=== PATIENT | male | born 1970 | race Caucasian/White ===

== ENCOUNTER → 2018-06-05 | Outpatient (CLI) | payer MEDICARE, MEDICAID ==
[~2018-06-05] MED LIST: ADVAIR HFA 230M12 GM INH; AZELAST NASAL137 MC1 NASAL; BACTRIM DS TAB1 EACH PO; COLACE100 MG PO; DOXYCYCLINE 10100 MG PO; FISH OIL 1,0001 EAC8 PO; FLEXERIL; GLUCOPHAGE XR500 MG PO; GLUCOPHAGE500 MG PO; GLYBURIDE 5 MG T5 M1 PO; HYDROCODON-ACE1 EAC7 PO; KEFLEX500 MG PO; KLOR-CON 1010 MEQ PO; LASIX 40 MG TAB40 M2 PO; LEVAQUIN 500 M500 M2 PO; LISINOPRIL-HCT1 EAC2 PO; LISINOPRIL5 MG PO; MEDROLDOSEPACK PO; MELATONIN5 M4 PO; MELOXICAM15 MG PO; MOBIC15 MG PO; NAPROSYN500 MG; NEURONTIN 300M300 M2 PO; NICOTINE TRANSD21 M1 TRANSDERM; NOHOMEMEDICATIONS; NORCO 5-325 TA1 EACH PO; NORVASC10 MG PO; OCEAN45 ML NASAL; PREDNISONE 10 M10 M1; PREDNISONE 20 M20 M1 PO; PREDNISONE10 MG PO; PROAIR HFA8.5 GM PO; SERTRALINE HCL50 MG PO; SINGULAIR 10 MG10 M1 PO; SPIRIVA18 MCG PO; TOPROL XL50 MG PO; TRAMADOL 50 MG50 MG PO; TYLENOL325 MG PO; ULTRAM 50MG TAB50 MG PO; VENTOLIN HFA 1818 GM INH; VENTOLIN HFA INH8 GM IH; ZOCOR20 MG PO; ZPAK PO; ZYRTEC10 MG PO
== END ==
LOC: M.ULTRA 06-04 15:00
DX: I83.91 Asymptomatic varicose veins of right lower extremity (principal); M19.90 Unspecified osteoarthritis, unspecified site; J45.909 Unspecified asthma, uncomplicated; E11.9 Type 2 diabetes mellitus without complications; E78.2 Mixed hyperlipidemia; I10 Essential (primary) hypertension; G47.33 Obstructive sleep apnea (adult) (pediatric); E66.9 Obesity, unspecified; Z88.8 Allergy status to other drugs, medicaments and biological substances; Z88.1 Allergy status to other antibiotic agents; Z68.41 Body mass index [BMI] 40.0-44.9, adult; Z79.84 Long term (current) use of oral hypoglycemic drugs; Z82.49 Family history of ischemic heart disease and other diseases of the circulatory system

== ENCOUNTER → 2020-01-01 | Outpatient (CLI) | payer MEDICARE, MEDICAID ==
--- NOTE | 2020-01-05 17:32 | 24HR ---
[place] [address] HOLTER MONITOR REPORT Name: JESSICA ZALDIVAR Room: [facility]#: [id number] Admission: 01/01/20 Attend Phys: Flaca Aguila Discharge: Date of : 68 Date of Service: 01/05/20 1125 Report #: [id number] THIS REPORT FOR: cc: Flaca Aguila Linda J. DO Liston, Michael J. 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 The maximum heart rate was 122 bpm corresponding with sinus tachycardia at 2:23 PM. The minimum heart rate was 53 bpm corresponding with sinus bradycardia at 3:40 AM. The patient exhibited tachycardia defined as heart rate greater than 100 bpm 80% of the monitor time. Patient exhibited bradycardia defined as heart rate less than 50 bpm less than 1% of the monitored time. There were rare unifocal premature ventricular contractions. There was no significant nonsustained or sustained ventricular ectopy. There were occasional premature atrial contractions. There were rare atrial couplets. There were no episodes of significant nonsustained or sustained supraventricular arrhythmia. There were no significant pauses and rhythm. There was no evidence of underlying atrial fibrillation or flutter. A diary was submitted in which the patient reported racing heart on 2 occasions. The symptoms do not appear to correlate with significant [place] [address] HOLTER MONITOR REPORT Name: JESSICA ZALDIVAR Room: [facility]#: [id number] Admission: 01/01/20 Attend Phys: Flaca Aguila Discharge: Date of : 68 Date of Service: 01/05/20 1125 Report #: [id number] Electronically Signed On 01-05-2020 17:31:57 CDT by Brandon Reese [email or web address] <ELECTRONICALLY SIGNED> By: Brandon Reese MD, [facility] 01/05/20 1731 1125 1125 Brandon Reese MD, FACC /EPI
== END ==
LOC: M.CRD 12:43
PROVIDERS: ATTEND Family Medicine
DX: R00.0 Tachycardia, unspecified (principal); R06.02 Shortness of breath; I10 Essential (primary) hypertension; E11.42 Type 2 diabetes mellitus with diabetic polyneuropathy

== ENCOUNTER 2020-02-06 12:54 | Emergency (ER) | payer MEDICARE, MEDICAID ==
[~2020-02-06] VITALS: Ht 157.5 cm; Wt 179.2 kg
[2020-02-06] MEDS ORDERED: LISINOPRIL5 MG PO (13:08)
[2020-02-06] MEDS ORDERED: MELOXICAM15 MG PO (13:08)
[2020-02-06] MEDS ORDERED: SIMVASTATIN80 MG PO (13:09)
[2020-02-06] MEDS ORDERED: NEURONTIN100 MG PO (13:10)
[2020-02-06] MEDS ORDERED: TRAMADOL 50 MG50 MG PO (13:10)
[2020-02-06] MEDS ORDERED: SYMBICORT80 MCG/4.1 INH (13:11)
[2020-02-06] MEDS ORDERED: MONTELUKAST SODI4 M1 PO (13:11)
[2020-02-06 14:08] LABS: ABSOLUTE BASOPHILS 0.1 thou/uL (0.0-0.2); ABSOLUTE EOSINOPHILS 0.1 thou/uL (0.0-0.7); ABSOLUTE LYMPHOCYTES 2.3 thou/uL (0.8-5.3); ABSOLUTE MONOCYTES 0.9 thou/uL (0.0-1.2); ABSOLUTE NEUTROPHILS 7.5 thou/uL (1.6-8.1); BASOPHILS 0.8 %; EOSINOPHILS 0.9 %; HEMOGLOBIN 16.8 gm/dL (14.0-18.0); LYMPHOCYTES 21.3 %; MCH 31.2 pg (26.0-34.0); MCHC 34.9 g/dL (28.0-37.0); MCV 89.3 fL (80.0-100.0); MONOCYTES 8.2 %; MPV 7.5 fl. (7.2-11.1); NUCLEATED RBCS 0 /100WBC; PLATELET COUNT* 311 thou/uL (150-400); POLYS 68.8 %; RBC 5.38 mil/uL (4.50-6.00); RDW-CV 14.5 % (10.5-14.5)
[2020-02-06 14:16] LABS: CALCIUM 8.6 mg/dL (8.5-10.1); CREATININE 1.2 mg/dL (0.6-1.3); POTASSIUM 4.4 mmol/L (3.5-5.1)
[2020-02-06 14:32] LABS: TOTAL BILIRUBIN 0.9 mg/dL (<0.1-1.0)
[2020-02-06 15:04] LABS: TOTAL PROTEIN 6.4 g/dL (6.4-8.2)
[2020-02-06] MEDS ORDERED: PROAIR HFA8.5 GM INH (16:42)
[2020-02-06 17:04] VITALS: BP 135/74
--- NOTE | 2020-02-08 11:57 | EKG ---
[place] [address] ELECTROCARDIOGRAM REPORT Name: JESSICA ZALDIVAR Noé Room: [facility]#: [id number] Admission: 02/06/20 Attend Phys: Discharge: 02/06/20 Date of : 68 Date of Service: 02/06/20 1303 Report #: [id number] THIS REPORT FOR: //name// [facility] ED Test Date: 2020-02-06 Test Time: 13:03:53 Pat Name: JESSICA ZALDIVAR Department: Room: Gender: Electrician Telephone: [facility] : 1970 Requested By: Jose L Magdaleno Order Number: [id number] MD: Chris Kaur Measurements Intervals [place] Rate: 91 P: 54 PA: 151 QRS: 74 QRSD: 94 T: 55 QT: 357 QTc: 440 Interpretive Statements Sinus rhythm Abnormal R-wave progression, late transition Compared to ECG 08/13/2014 08:37:19 Right-axis deviation no longer present Electronically Signed On 02-08-2020 11:57:31 [employer]ARD [employer]PER[employer] by Chris Kaur [email or web address] <ELECTRONICALLY SIGNED> By: Chris Kaur MD, FACC 02/08/20 1157 1303 1303 Chris Kaur MD, [facility] /EPI
== END 2020-02-06 17:04 | disposition home or self-care (01) ==
LOC: M.ERS 12:54
PROVIDERS: Physician Assistant
DX: R06.00 Dyspnea, unspecified (principal); Z20.828 Contact with and (suspected) exposure to other viral communicable diseases; M13.862 Other specified arthritis, left knee; M13.861 Other specified arthritis, right knee; G47.30 Sleep apnea, unspecified; I10 Essential (primary) hypertension; G62.9 Polyneuropathy, unspecified; E11.9 Type 2 diabetes mellitus without complications; G43.909 Migraine, unspecified, not intractable, without status migrainosus; M47.9 Spondylosis, unspecified; E66.01 Morbid (severe) obesity due to excess calories; F17.210 Nicotine dependence, cigarettes, uncomplicated; Z88.6 Allergy status to analgesic agent; Z91.011 Allergy to milk products; Z68.45 Body mass index [BMI] 70 or greater, adult